=== PATIENT | female | born 1940 | race Caucasian/White ===

== ENCOUNTER 2020-09-26 13:15 | Emergency (ER) | payer MEDICARE, SELFPAY ==
[2020-09-26 13:36] VITALS: BP 139/86; PULSE 79; RESP 16; TEMP 36.9; O2SAT 99
--- NOTE | 2020-09-26 14:30 | DI.US_ITS ---
Exam(s) US UPPER EXTREMITY VENOUS LT EXAM: US UPPER EXTREMITY VENOUS LT CLINICAL HISTORY: L distal arm vein bulging, r/o dvt. TECHNIQUE: Ultrasound examination of the left upper extremity venous system(s) is performed using gr ayscale, color-flow, and spectral Doppler analysis. COMPARISON: No exams were available for comparison FINDINGS: The left internal jugular, axillary, subclavian, cephalic, basilic, brachial, and median cubital vein are patent without evidence of thrombosis. IMPRESSION: No DVT. DATA REPOSITORY:
--- NOTE | 2020-09-26 14:49 | W.ED.GENAD ---
Discharge Plan Disposition Patient Disposition: HOME Condition: Stable Discharge Details Clinical Impression: Vein symptom Primary Care Provider: [facility] Provider: Emma Almanzar Discharge Instructions Instructions: Contusion in Adults (ED) Additional Instructions: Your presentation does not appear consistent with a fracture, infection and your ultrasound today was negative for a blood clot. It is possible that you have developed a localized area of swelling or a varicosity to your vein which is causing increased blood flow in this area when your hand is down. Keep the Pieter wrap in place over the next 2 days. You can also try applying ice to the area. You will receive a call from care management regarding a follow-up appointment with your primary care doctor for reevaluation. Return immediately to the emergency department if you develop any worsening or new concerning symptoms. Discharge Data Discharge Physician: Emma Almanzar Medical Decision Making 80-year-old female presents with a bulging vein in her left hand and wrist after hit on her left wrist with a trash can lid 6 days ago. She denies any pain in her hand or wrist. She states when her hand is dependent she feels the blood flow increase in her left wrist and hand pain and then when she lifts her hands up she feels the blood travel back proximally up her arm. This was witnessed when patient had her hand dependent. The vein on her dorsal hand and wrist appeared more prominent and varicose and when she lifted her hand up it was visible that the blood flow was traveling more proximally. There is no surrounding cellulitis or trauma. She has no bony tenderness. This does not appear consistent with an infection or fracture. Patient referred for ultrasound which is negative. Discussed with patient that this could be potentially surrounding tissue swelling causing local trauma to the vein including an increased varicosity but does not appear consistent with a blood clot or infection. She was given an Pieter wrap. Patient placed on care management list to help arrange for follow-up appointment to reevaluate. Usual and customary return precautions given prior to discharge. HPI General Mode of arrival: ambulatory. Date/Time Provider Initiated Documentation: 09/26/20 14:26. Limitations to Documentation: no limitations. Information obtained by: patient. HPI Narrative: Patient is a 80-year-old female who presents for a concern for blood flow in the vein of her wrist since a trash can lid fell down and hit her left and right wrist 6 days ago. Patient states she has no pain in her right wrist but a few days after the injury her left wrist she noted swelling within the vein when her hand hangs down and then she feels the blood flow back of her arm when she lifts up her hand. She denies any pain in her hand or wrist. She denies any fever General Stated Complaint: Vascular MYAH: 4 Review of Systems All systems reviewed & are unremarkable except as noted in HPI and below Constitutional Constitutional: Reports as per HPI, Denies chills and Denies fever(s) Eyes Eyes: Denies blurry vision ENT Ears, Nose, Mouth, and Throat: Denies dizziness, Denies sore throat and Denies throat swelling Cardiovascular Cardiovascular: Denies chest pain and Denies dyspnea Respiratory Respiratory: Denies cough and Denies dyspnea Gastrointestinal Gastrointestinal: Denies abdominal pain, Denies diarrhea and Denies vomiting Genitourinary Genitourinary: Denies hematuria and Denies dysuria Musculoskeletal Musculoskeletal: Denies back pain and Denies numbness Integumentary/Breasts Skin/Breast: Denies lesions and Denies rash Neurologic Neurologic: Denies dizziness, Denies localized weakness and Denies numbness Allergic/Immunologic Allergic/Immunologic: Denies throat swelling [facility] Medical History (Updated 09/26/20 @ 15:59 by Emma Almanzar DO) No significant past medical history Surgical History (Updated 09/26/20 @ 15:52 by Emma Almanzar DO) Ankle fracture, right Ganglion cyst History of hysterectomy Social History Smoking/Tobacco Use Status: Never Smoking risk assessment performed?: Yes Alcohol Intake: never Substance use type: does not use Do you feel safe at home: Yes Do you feel safe in your relationship?: Yes Exam Const General: cooperative, healthy appearing and no acute distress [facility] Head: normal to inspection Mouth: oral mucosae normal Eyes General: appearance normal, both eyes and all related structures Neck Neck: normal visual inspection Resp Effort & Inspection: normal respiratory effort and able to speak in complete sentences Cardio Rate: regular rate Skin General skin exam: no rashes or lesions noted Neuro General: patient alert, patient awake and patient oriented x3 Motor: muscle tone normal throughout Extrem Other: Prominent appearing veins in the left dorsal hand extending from the left to the left dorsal wrist. These veins appear more prominent when hand is dependent and hanging down. When she lifts her hand upward the prominent vein disappears and a lynn of blood is apparent running distally to proximally. There is no surrounding erythema, edema, ecchymosis, deformity. Left radial and ulnar pulse intact. There is no bony tenderness to the hand, wrist or forearm Psych Appearance: grossly normal Affect: normal affect Course Vital Signs Vital signs: Vital Signs Temperature 98.4 F 09/26/20 13:36 Pulse 79 09/26/20 13:36 Respiratory Rate 16 09/26/20 13:36 Blood Pressure 139/86 09/26/20 13:36 Pulse Oximetry 99 09/26/20 13:36 Temperature 98.4 F 09/26/20 13:36 Temperature Source Oral 09/26/20 13:36 Pulse 79 09/26/20 13:36 Respiratory Rate 16 09/26/20 13:36 Blood Pressure 139/86 09/26/20 13:36 Blood Pressure Position Sitting 09/26/20 13:36 Pulse Oximetry 99 09/26/20 13:36 Oxygen Delivery Method Room Air 09/26/20 13:36 Oxygen Flow Rate 0 09/26/20 13:36
== END 2020-09-26 16:11 | disposition home or self-care (01) ==
PROVIDERS: Emergency Provider Physician Assistant
DX: R22.32 Localized swelling, mass and lump, left upper limb (principal); I87.8 Other specified disorders of veins
CPT/HCPCS: 99284; 93971; 99283